=== PATIENT | female | born 1985 | race Two or more races ===

== ENCOUNTER 2021-08-20 16:17 | Emergency (ER) | payer MEDICAID, OTHER ==
[~2021-08-20] VITALS: Ht 157.5 cm; Wt 72.6 kg
[2021-08-20] MEDS ORDERED: SODIUM CHLORIDE 0.9% 1,000 ML IV ONE (17:30)
[2021-08-20 17:35] LABS: Urine Bacteria FEW /hpf (None Seen); Urine Blood 3+ /uL (Negative); Urine Specific Gravity 1.008 (1.001-1.035); Urine WBC 5 /hpf (0 - 5)
[2021-08-20 17:56] LABS: Basophils # (auto) 0 10 ^3/uL (0-0.2); Basophils % (auto) 0.5 % (0.0-2.0); Eosinophils # (auto) 0.1 10 ^3/uL (0-0.8); Eosinophils % (auto) 1.2 % (0.0-7.0); Hematocrit 35.9 % (36.0-46.0); Hemoglobin 12.2 g/dL (12.2-16.2); Lymphocytes # (auto) 0.8 10 ^3/uL (0.4-5.4); Lymphocytes % (auto) 9.2 % (10.0-50.0); Mean Corpuscular Hemoglobin 28.3 pg (28.0-32.0); Mean Corpuscular Hgb Conc. 33.9 g/dL (32.0-36.0); Mean Corpuscular Volume 83.4 fL (80.0-100.0); Monocytes # (auto) 0.9 10 ^3/uL (0-1.3); Monocytes % (auto) 9.7 % (0.0-12.0); Neutrophils # (auto) 7.3 10 ^3/uL (1.6-8.6); Neutrophils % (auto) 79.4 % (37.0-80.0); Red Cell Distribution Width 15.2 % (11.8-14.3); White Blood Cell 9.2 10^3/uL (4.4-10.8)
[2021-08-20 17:56] LABS: Amphetamine Screen, Urine NEGATIVE (NEGATIVE); Barbiturate Scree,Urine NEGATIVE (NEGATIVE); Benzodiazephine Screen, Urine NEGATIVE (NEGATIVE); Cannabinoid Screen, Urine NEGATIVE (NEGATIVE); Cocaine Screen, Urine NEGATIVE (NEGATIVE); Opiate Scree,Urine NEGATIVE (NEGATIVE); Phencyclidine Screen, Urine NEGATIVE (NEGATIVE)
[2021-08-20 18:15] LABS: Albumin 4.2 g/dL (3.4-5.0); Potassium 3.1 mmol/L (3.5-5.1)
[2021-08-20 18:16] LABS: Magnesium 2.4 mg/dL (1.6-2.6)
[2021-08-20 18:19] LABS: BUN/Creatinine Ratio 16.3; Bilirubin, Total 0.6 mg/dL (0.2-1.0); Total Protein 8.5 g/dL (6.4-8.2)
[2021-08-20 18:22] LABS: Blood Alcohol < 3.0 mg/dL (0-5); Creatine Kinase IFCC 478 U/L (26-192)
[2021-08-21] MEDS ORDERED: POTASSIUM CHL 20 Meq TABLET PO ONE
[2021-08-21] MEDS ORDERED: SODIUM CHLORIDE 0.9% 1,000 ML IV ONE (05:15)
[2021-08-21] MEDS ORDERED: NITROFURANTOIN 100 mg CAP PO ONE (05:15)
[2021-08-21] MEDS ORDERED: IBUPROFEN 400 MG TAB PO ONE (17:15)
[2021-08-21 21:53] VITALS: BP 117/82
== END 2021-08-21 22:25 ==
LOC: ER 16:34
DX: R44.3 Hallucinations, unspecified (principal); E86.0 Dehydration; E87.6 Hypokalemia; Z20.822 Contact with and (suspected) exposure to COVID-19
CPT/HCPCS: 36415; 71045; 80053; 80307; 80320; 81001; 81025; 82550; 83690; 83735; 85025; 87426; 93005; 96360; 96361; 99285; J7030